=== PATIENT | female | born 1945 | race Caucasian/White ===

== ENCOUNTER → 2016-07-23 | Outpatient (CLI) | payer MEDICARE, OTHER ==
--- NOTE | 2016-07-24 10:32 | MM ---
Reason for exam: screening (asymptomatic). Last mammogram was performed 3 years ago. History: Patient is postmenopausal and is nulliparous. Family history of breast cancer in maternal aunt. Physical Findings: A clinical breast exam by your physician is recommended on an annual basis and results should be correlated with mammographic findings. MG Screening Mammo w CAD Bilateral CC and MLO view(s) were taken. Prior study comparison: July 22, 2013, bilateral digital screening mammo w/CAD. There are scattered fibroglandular densities. There is no discrete abnormality. ASSESSMENT: Negative, BI-RAD 1 RECOMMENDATION: Routine screening mammogram of both breasts in 1 year.
== END | disposition home or self-care (01) ==
LOC: RADMAMWWP 14:11
PROVIDERS: ATTEND Family Medicine
DX: Z12.31 Encounter for screening mammogram for malignant neoplasm of breast (principal)

== ENCOUNTER → 2017-06-24 | Outpatient (CLI) | payer MEDICARE ==
--- NOTE | 2017-06-24 13:32 | MM ---
Reason for exam: clinical finding. Last mammogram was performed 11 months ago. History: Patient is postmenopausal and is nulliparous. Family history of breast cancer in maternal aunt. Physical Findings: Nurse did not find any significant physical abnormalities on exam. MG 3D Diag Mammo W/Cad RT CC and MLO view(s) were taken of the right breast. Prior study comparison: July 23, 2016, bilateral MG screening mammo w CAD. July 22, 2013, bilateral digital screening mammo w/CAD. There are scattered fibroglandular densities. No suspicious abnormality. These results were verbally communicated with the patient and result sheet given to the patient on 06/24/17. ASSESSMENT: Negative, BI-RAD 1 RECOMMENDATION: Return to routine screening mammogram schedule for both breasts. Back on schedule for July 2017. Manage patient on a clinical basis.
== END | disposition home or self-care (01) ==
LOC: RADMAMWWP 10:08
PROVIDERS: ATTEND Family Medicine
DX: N64.9 Disorder of breast, unspecified (principal)
CPT/HCPCS: 77065; G0279

== ENCOUNTER → 2019-04-28 | Outpatient (CLI) | payer MEDICARE ==
--- NOTE | 2019-04-28 14:30 | BD ---
EXAMINATION TYPE: Axial Bone Density DATE OF EXAM: 04/28/2019 COMPARISON: NONE CLINICAL HISTORY: Height: 5 FT 3 IN Weight: 196 FRAX RISK QUESTIONS: Alcohol (3 or more units per day): NO Family History (Parent hip fracture): NO Glucocorticoids (More than 3mos): NO (Ex: prednisone, prednisolone, methylprednisolone, dexamethasone, and hydrocortisone). History of Fracture in Adulthood: NO Secondary Osteoporosis: 1. Type 1 Diabetes: NO 2. Hyperthyroidism: NO 3. Menopause before 45: NO 4. Malnutrition: NO 5. Chronic liver disease: PREV HEPATITIS Rheumatoid Arthritis: NO Current Tobacco Use: NO RISK FACTORS HISTORY OF: Postmenopausal woman: MID 50'S Lost more than 2 inches in height since high school: YES MEDICATIONS: Additional Medications: JANUMET LOSARTIN Additional History: EXAM MEASUREMENTS: Bone mineral densitometry was performed using the linkedü System. Bone mineral density as measured about the Lumbar spine is: ----- L1-L4(G/cm2): 1.188 T Score Values are as follows: ----- L2: -0.9 ----- L3: 0.5 ----- L4: 0.8 ----- L1-L4: 0.1 Bone mineral density has: INCREASED 5.2 % since study of: 2013 Bone mineral density about the R hip (g/cm2): 0.841 Bone mineral density about the L hip (g/cm2): 0.860 T Score values are as follows: -----R Neck: -1.4 -----L Neck: -1.3 -----R Total: -0.8 -----L Total: -0.7 Bone mineral density has: DECREASED -11.6 % since study of: 2013 IMPRESSION: Normal (Values between +1 and -1 indicate normal bone mass). Consider repeating this study in 5 year s or sooner if there is some new clinical indication. NOTE: T-SCORE=SD OF THE YOUNG ADULT MEAN.
--- NOTE | 2019-04-29 13:45 | MM ---
Reason for exam: screening (asymptomatic). Last mammogram was performed 1 year and 10 months ago. History: Patient is postmenopausal and is nulliparous. Family history of breast cancer in maternal aunt. Physical Findings: A clinical breast exam by your physician is recommended on an annual basis and results should be correlated with mammographic findings. MG Screening Mammo w CAD Bilateral CC and MLO view(s) were taken. Prior study comparison: June 24, 2017, right breast MG 3d diag mammo w/cad RT. July 23, 2016, bilateral MG screening mammo w CAD. There are scattered fibroglandular densities. There is no discrete abnormality. No significant changes when compared with prior studies. ASSESSMENT: Negative, BI-RAD 1 RECOMMENDATION: Routine screening mammogram of both breasts in 1 year.
== END | disposition home or self-care (01) ==
LOC: RADMAMWWP 13:36
PROVIDERS: ATTEND Nurse Practitioner Family
DX: Z12.31 Encounter for screening mammogram for malignant neoplasm of breast (principal); Z78.0 Asymptomatic menopausal state
CPT/HCPCS: 77067; 77080

== ENCOUNTER → 2021-08-22 | Outpatient (CLI) | payer MEDICARE ==
[2021-08-22 16:28] LABS: Partial Thromboplastin Time 24.9 sec (22.0-30.0); Prothrombin Time 10.6 sec (9.0-12.0)
[2021-08-22 22:25] LABS: HCT 40.1 % (37.2-46.3); HGB 12.4 g/dL (12.0-15.0); MCHC 30.9 g/dL (32.0-37.0); MCV 87.4 fL (80.0-97.0); Mean Platelet Volume 11.4 fL (9.5-12.2); NRBC Per 100 WBC 0 /100 WBCS (0.0-0.0); Platelet Count 391 X 10*3/uL (140-440); RBC 4.59 X 10*6/uL (4.10-5.20); RDW 15.7 % (11.5-14.5); WBC 7.83 X 10*3/uL (4.50-10.00)
[2021-08-22 22:45] LABS: African American GFR (CKD) 96.9 (60.0-200.0); Albumin 4.3 g/dL (3.8-4.9); Albumin/Globulin Ratio 1.36 (1.60-3.17); Anion Gap 12.7 mmol/L (10.00-18.00); BUN/Creat Ratio 18.36 Ratio (12.00-20.00); Calcium 10.2 mg/dL (8.7-10.3); Carbon Dioxide 26.9 mmol/L (20.0-27.5); Globulin 3.2 g/dL (1.6-3.3); Non-African American GFR(CKD) 83.6 (60.0-200.0); Potassium 4.1 mmol/L (3.5-5.5); Total Bilirubin 0.5 mg/dL (0.30-1.20); Total Protein 7.5 g/dL (6.2-8.2)
[2021-08-22 23:17] LABS: Appearance,Urine Clear (Clear); Bilirubin,Urine Negative (Negative); Blood,Urine Negative (Negative); Color,Urine Yellow (Yellow); Ketones,Urine Trace mg/dL (Negative); Nitrite,Urine Negative (Negative); Specific Gravity,Urine 1.018 (1.001-1.030); Urobilinogen,Urine 0.2 (0.2,1.0)
[2021-08-22 23:25] LABS: Bacteria,Urine None Seen /HPF (None Seen)
== END | disposition home or self-care (01) ==
LOC: LABPAT 14:41
PROVIDERS: ATTEND Orthopaedic Surgery Sports Medicine
DX: Z01.812 Encounter for preprocedural laboratory examination (principal); M17.12 Unilateral primary osteoarthritis, left knee
CPT/HCPCS: 36415; 80053; 81001; 85027; 85610; 85730; 87070; 93005

== ENCOUNTER 2021-09-20 07:26 | Day surgery (SDC) | payer MEDICARE ==
[2021-09-17 16:04] VITALS: BMI 30.2
[~2021-09-20 07:26] MED LIST: ACETAMINOPHEN TAB 500 MG TAB PO PRN; GABAPENTIN 300 MG CAP PO PRN; MELOXICAM 7.5 MG TAB PO PRN; ONDANSETRON 4 MG/2 ML VIAL IVP PRN; TRANEXAMIC ACID IN NACL,ISO-OS 1,000 MG in SALINE 1 100ML.BAG IVPB PRN
[2021-09-20 08:32] LABS: Glucose,Whole Blood 133 mg/dL (70-110)
[2021-09-20] MEDS ORDERED: LACTATED RINGERS 1,000 ML IV ONE (08:32)
[2021-09-20] MEDS ORDERED: fentaNYL (PF) 50 MCG/ML 2 ML AMP IVP ONE (09:25)
[2021-09-20] MEDS ORDERED: MIDAZOLAM 2 MG/2 ML VIAL IVP ONE (09:25)
--- NOTE | 2021-09-20 09:59 | P.ANPRN ---
Procedure Note - Anesthesia - Nerve Block Performed Left Adductor Canal Infusion Time Out Performed: Yes (924) Date of Procedure: 09/20/21 Procedure Start Time: : Procedure Stop Time: : Location of Patient: PreOp Indication: Acute Post-Operative Pain, Requested by Surgeon Specifically requested for management of pain by DrBan: Carlos Alberto Kaminski Sedation Type: Sedate with meaningful contact maintained Preparation: Sterile Prep, Sterile Dressing Position: Supine Catheter Depth at Skin (cm): 7 Catheter: Indwelling Needle Types: Pajunk Needle Gauge: Other (see comment) (16) Ultrasound used to visualize needle placement: Yes Ultrasound used to observe medication spread: Yes Injectate: 0.5% Ropivacaine (see comment for volume) (15cc + 5cc nacl) Blood Aspirated: No Pain Paresthesia on Injection Noted: No Resistance on Injection: Normal Image Stored and Saved: Yes Events: Uneventful and Well Tolerated
--- NOTE | 2021-09-20 10:00 | P.ANPRN ---
Procedure Note - Anesthesia - Nerve Block Performed Left iPack Single Time Out Performed: Yes (924) Date of Procedure: 09/20/21 Procedure Start Time: 09:32 Procedure Stop Time: 09:36 Location of Patient: PreOp Indication: Acute Post-Operative Pain, Requested by Surgeon Specifically requested for management of pain by DrBan: Carlos Alberto Kaminski Sedation Type: Sedate with meaningful contact maintained Preparation: Sterile Prep Position: Supine Catheter: None Needle Types: Pajunk Needle Gauge: 21 Ultrasound used to visualize needle placement: Yes Ultrasound used to observe medication spread: Yes Injectate: 0.5% Ropivacaine (see comment for volume) (15cc +5cc nacl) Blood Aspirated: No Pain Paresthesia on Injection Noted: No Resistance on Injection: Normal Image Stored and Saved: Yes Events: Uneventful and Well Tolerated
[2021-09-20] MEDS ORDERED: ACETAMINOPHEN TAB 325 MG TAB PO PRN (10:21)
[2021-09-20] MEDS ORDERED: NA PHOS,M-B/NA PHOS,DI-BA 133 ML ENEMA RECTAL PRN (10:21)
[2021-09-20] MEDS ORDERED: MAGNESIUM HYDROXIDE 2,400 MG/10 ML CUP PO PRN (10:21)
[2021-09-20] MEDS ORDERED: NALOXONE 0.4 MG/ML 1 ML VIAL IV PRN (10:21)
[2021-09-20] MEDS ORDERED: hydrOXYzine pamoate 25 MG CAP PO PRN (10:21)
[2021-09-20] MEDS ORDERED: diazePAM 5 MG TAB PO PRN (10:21)
[2021-09-20] MEDS ORDERED: TEMAZEPAM 15 MG CAP PO PRN (10:21)
[2021-09-20] MEDS ORDERED: HYDROmorphone 0.5 MG/0.5 ML SYRINGE IVP PRN ×3 (10:21)
[2021-09-20] MEDS ORDERED: bisacodyL 10 MG SUPP RECTAL PRN (10:21)
[2021-09-20] MEDS ORDERED: traMADol 50 MG TAB PO PRN (10:21)
[2021-09-20] MEDS ORDERED: ONDANSETRON 4 MG/2 ML VIAL IVP PRN (10:21)
[2021-09-20] MEDS ORDERED: HYDROcodone/APAP 7.5-325MG 1 EACH TAB PO PRN ×2 (10:25)
[2021-09-20] MEDS ORDERED: ePHEDrine 50 MG/ML 1 ML VIAL ONE (10:31)
[2021-09-20] MEDS ORDERED: MIDAZOLAM 2 MG/2 ML VIAL ONE (10:31)
[2021-09-20] MEDS ORDERED: fentaNYL (PF) 50 MCG/ML 2 ML AMP ONE (10:31)
[2021-09-20] MEDS ORDERED: ROPIVACAINE 5 MG/ML 30 ML VIAL ONE (10:31)
[2021-09-20] MEDS ORDERED: PROPOFOL 10 MG/ML 20 ML VIAL IV ONE (10:31)
[2021-09-20] MEDS ORDERED: SODIUM CHLORIDE 0.9% (PF) 10 ML VIAL ONE (10:31)
[2021-09-20] MEDS ORDERED: ceFAZolin 3,000 MG in SODIUM CHLORIDE 0.9% IRRIGATIO 3,000 ML IRRIGATION ONE (11:04)
[2021-09-20] MEDS ORDERED: ROPIVACAINE 0.2%-NS ON-Q PUMP 2 MG/ML EACH MISCELLANE ONE (12:48)
[2021-09-20 13:19] LABS: Glucose,Whole Blood 90 mg/dL (70-110)
--- NOTE | 2021-09-20 14:00 | XR ---
EXAMINATION TYPE: XR knee limited LT DATE OF EXAM: 09/20/2021 COMPARISON: NONE HISTORY: 76-year-old female evaluation for postoperative abnormality in alignment TECHNIQUE: 2 views FINDINGS: Images show placement of left total knee arthroplasty. Both distal femoral and proximal tibial compon ents of the prosthesis appear well seated without prosthetic fracture. Alignment grossly anatomic. An terior soft tissue swelling with soft tissue air as well as intra-articular air related to recent ope ration. IMPRESSION: Uncomplicated postoperative appearance left total knee arthroplasty.
[2021-09-20] MEDS: LACTATED RINGERS 1,000 ML IV SCH (14:14)
--- NOTE | 2021-09-20 15:54 | OP ---
OPERATIVE REPORT DATE OF PROCEDURE: 09/20/2021. SURGEON: Carlos Alberto Kaminski MD. CLINICAL NURSING INSTRUCTOR: Frank GUZMÁN. PREOPERATIVE DIAGNOSIS: Left knee osteoarthrosis. POSTOP DIAGNOSIS: Left knee osteoarthrosis. OPERATION: Left total knee arthroplasty. ANESTHESIA: Spinal sedation. ESTIMATED BLOOD LOSS: 100 mL. TOURNIQUET: Tourniquet time was 55 minutes at 250 mmHg. COMPLICATIONS: None apparent. DRAINS: None. DISPOSITION: Postanesthesia care unit. INDICATIONS: Rosa is a very pleasant 76-year-old female with longstanding history of left knee pain. History and physical examination are consistent with advanced left knee osteoarthrosis. She has been through significant nonoperative management up to this point. Further treatment options were discussed and she has decided to go forward with left total knee arthroplasty. The risks of procedure were discussed with her in detail. These risks included, but were not limited to risk of infection, nerve damage, bleeding, pain, and a small risk of deep vein thrombosis which could lead to fatal pulmonary embolism. There is also risk of loosening of the implant which could require revision operation. The patient understands these risks. All of her questions were answered to her satisfaction. Appropriate informed consent was obtained. DESCRIPTION OF THE PROCEDURE: The patient was identified in the preoperative holding area. Surgical site was marked by both the patient and myself. She was given 2 grams of Ancef IV prophylactic purposes. She was then transferred to the operative suite. She was placed supine on the operative table. A spinal anesthetic was then administered and dosed per the anesthesia without apparent complication. Examination under anesthesia number form. The patient was 5-7 degrees shy of full extension. She had 90 degrees of flexion. The medial collateral ligament, lateral collateral ligament and posterior cruciate ligaments were stable. Tourniquet was then placed high on the left upper thigh well-padded in preparation for surgery. The patient's left lower extremity was then prepped and draped in usual sterile fashion. Standard surgical pause undertaken to ensure that we were operating the correct site and that appropriate preoperative antibiotics were given. All staff in room in agreement and we proceeded. Next, the outlines of the patella were marked were then marked with a surgical pen. A planned 12 cm vertical incision centered over the patella was marked with a surgical pen. Leg was then exsanguinated with an Esmarch dressing. The knee was then flexed and tourniquet inflated to 250 mmHg. The total tourniquet time for the procedure was 55 minutes minutes. Incision was then made with a 10 blade scalpel. Dissection carried down sharply overlying fascia. Great care was taken to minimize the skin flaps. The knee was then exposed using a standard medial parapatellar approach. A small cuff of quadriceps tendon was left for suturing. She was in a bit of valgus preoperatively. A very minimal medial release was made. It was just enough to place the medial retractors. The medial meniscus was then excised as well. The lateral meniscus was also released anteriorly. The leg was then externally rotated. The patella was everted. The knee was flexed. The retractors then placed to protect the collateral ligaments. I then proceeded to remove the infrapatellar fat pad. It was excised sharply tangentially with fibers of the patellar tendon. I then proceeded to remove the peripheral osteophytes. This was done with a rongeur. I then proceeded with the distal femoral resection. She did have a flexion contracture. A planned 11 mm resection was then done. Femoral canal was then entered the femur approximately 10 mm anterior to the origin of the posterior cruciate ligament. The camron was then advanced on the side of the femur and placed intramedullary. Based on the preoperative radiographs, the angle between the anatomic and mechanical axis of the femur was approximately 4-5 degrees with valgus angle. The distal femoral cutting guide was then set at 4 degrees for the left knee. The distal femoral cutting guide was advanced over the intramedullary camron. This was seated firmly against the femur. Then as mentioned planned to take 11 mm off the distal femur. The cutting block was then secured onto the femur with pins. The jig was then removed. Distal femoral cut was made through the slot of the block. The pins were then removed. The distal femoral cutting block was removed. The accuracy of the distal femoral cuts was checked with 2 flat bars. I then proceeded to femoral sizing. Posterior referencing sizing guide was held firmly against the resected distal surface of the femur. Posterior condyles were resting on the posterior plane of the guide. The sizing stylus was then placed on the anterior femur. The size was measured as a size 8. I then assessed for femoral rotation. Plan was for 3 degrees of external rotation. Three degrees external rotation was placed onto the jig. These holes were then marked. I then confirmed the rotation by 3 separate methods. This was done using epicondylar axis as well as Whitesides line and posterior referencing. It was deemed that the external rotation was proper. I then went forward placing the femoral cutting block. This was placed over the previously placed pin holes. The Allan wing was then placed onto the anterior slots to ensure that we would not notch the anterior femur with the anterior femoral cut. I then proceeded with the anterior femoral cut. This was flush with the anterior cortex of the femur. The posterior cuts were then made followed by the anterior chamfer cut, then the posterior chamfer cut. The cutting block was then removed. Throughout the resection, the collateral ligaments were protected with retractors. I then placed a trial size 8 femur. It was slightly wide with a narrow fit very nicely and it fit flush with the distal end of the femur. The drill holes were then made. I then proceeded with the tibial cut. I planned for cruciate-retaining knee. The guide was placed and set for varus valgus and for slope. The height was set for approximate 2 mm resection from the lateral tibial plateau which was the lower side. I was happy with the alignment and the amount of resection. The cutting block was then pinned to the proximal tibia. The alignment camron was removed. The proximal tibia was resected with a reciprocating saw. Again, this was done with retractors protecting the collateral ligaments as well as the posterior cruciate ligament. I then proceeded to evaluate the flexion extension gaps. A 10 mm block was then placed. The flexion and extension gaps were equal. I then proceed with resection of posterior osteophytes. She had very extensive posterior osteophytes. This was done using a curved osteotome. This resected the posterior osteophytes and posterior capsule stripping was done off the posterior aspect of the femur at this time. The osteophytes were then removed. I then proceeded with the resection of the patella. The thickness of patella was measured using the caliper. The thickness was 22 mm. The thickness of the anticipated patellar dome was taken into account. The resection was then performed and confirmed to be equal in 4 quadrants using a caliper. Approximately 14 mm of bone remained after resection. A 32 x 8.5 standard patellar trial was then placed. The holes drilled. The trial was then placed. I then proceed with sizing tibial plate. A size D tibial plate fit very nicely. I then placed the trial femur in the tibial tray and patellar button. A 10 mm trial tibial insert was also placed. The components fit very nicely. She had full extension and flexion. The extension and flexion gaps were equal and stable to both varus and valgus stress. The patella tracked appropriately. The tibial tray rotation was then marked with a Bovie. This was externally rotated properly. I then proceeded with tibial preparation. First, drilled the femoral holes, removed femoral component. The tibial tray was then set for proper external rotation as well as mediolateral placement onto the tibia. Then pinned into place. I then proceeded punching the keel. I then decided to proceed with cementing of all our components. The knee was thoroughly irrigated with sterile saline solution via pulse lavage. The lateral geniculate artery was identified and cauterized. All blood was removed from the bone of the tibia, femur and patella with pulse lavage. I then proceed with cementing. Two packs of antibiotic bone cement was prepared on the back table by the computer repair technician. I then proceeded with cementing the tibia first. Cement was impacted in the keel as well as deeply seated in the bone. A second coat of cement was then placed. The tibia was then impacted into place. Excess cement was removed with [place]'s and jokers. I then proceeded with cementing of the femoral component. The femoral component was also cemented using standard technique. Excess cement was removed. A 10 mm trial insert was then placed into the knee. It was brought into full extension with a constant axial load, placed until the cement had hardened. The patellar component was then cemented. This held firmly with a compressive device until the cement had dried. When the cement had dried, the knee was taken out of extension. All excess cement was removed from around the prosthesis. I then trialed the knee with a 10 mm insert. Flexion extension gaps were appropriate. The knee was stable. It came in full extension. I decided to go forward with a 10 mm medial congruent cross-linked cruciate-retaining tibial insert. Polyethylene was then placed on the tibial tray and locked in place. The knee was then reduced. The knee was again further irrigated with sterile saline solution with antibiotic added. The tourniquet was then deflated. Total tourniquet time for the procedure was 55 minutes minutes at 250 mmHg. Final components were Larry Persona size 8 narrow cruciate-retaining femoral component, size D tibial tray, a 10 mm medial congruent cruciate-retaining polyethylene insert, and a 32 x 8.5 mm patella. I then proceed with closure. Again, the knee was thoroughly irrigated. The quadriceps tendon and the medial retinaculum were reapproximated with #2 Ethibond suture. The extensor mechanism was then closed with a running #2 Quill suture. Subcutaneous tissues were closed with 2-0 Vicryl interrupted suture. The skin was closed with a running 3-0 Quill suture. Dermabond was applied to the incision. Sterile compressive dressings were applied. All sponge and needle counts were deemed correct prior to closure. The patient tolerated procedure without apparent complication. She was transferred to recovery room in stable condition. MMODL / IJN: [id number] /
[2021-09-20 16:17] LABS: Glucose,Whole Blood 104 mg/dL (70-110)
--- NOTE | 2021-09-20 16:23 | P.CONS ---
History of Present Illness - Reason for Consult Consult date: 09/20/21 Medical management Requesting physician: Carlos Alberto Kaminski - Chief Complaint Left knee surgery - History of Present Illness This is a pleasant 76-year-old patient of Dr. Farley. Chronic stable medical conditions include diabetes mellitus type 2, hypertension, osteoarthritis of joints. Patient is undergone left total knee arthroplasty. Postprocedure no nausea vomiting. No chest pain or shortness of breath. Reclining in bed. Review of systems: GEN.: None EYES: None HEENT: None NECK: None RESPIRATORY: None CARDIOVASCULAR: None GASTROINTESTINAL: None GENITOURINARY: Urine stress incontinence MUSCULOSKELETAL: Pain in different joints including left shoulder LYMPHATICS: None HEMATOLOGICAL: None PSYCHIATRY: None NEUROLOGICAL: None Past medical history to include: Diabetes mellitus, hypertension, osteoarthritis, Social history: No history of smoking or alcohol. Lives with sister. Physical examination: VITAL SIGNS: 97.2, 56, 20, 142/61, 100% room air GENERAL: BMI 29.2, reclining in bed awake comfortable. EYES: Pupils equal. Conjunctiva normal. HEENT: External appearance of nose and ears normal, oral cavity grossly normal. NECK: JVD not raised; masses not palpable. HEART: First and second heart sounds are normal; no edema. LUNGS: Respiratory rate normal; clear to auscultation. ABDOMEN: Soft, nontender, liver spleen not palpable, no masses palpable. PSYCH: Alert and oriented x3; mood and affect normal. MUSCULOSKELETAL:No Clubbing/cyanosis;muscles-grossly intact. Evidence of OA. Resting over the left knee. NEUROLOGICAL: Cranial nerves grossly intact; no facial asymmetry, power and sensation grossly intact. LYMPHATICS: No lymph nodes palpable in the axilla and neck INVESTIGATIONS, reviewed in the clinical context: Lab work from 08/22/2021: White count 7.8 hemoglobin 12.4 platelets 391 sodium 143 potassium 4.1 creatinine 0.7 EKG tracing personally reviewed by me-sinus rhythm. Assessment and plan: -Left total knee arthroplasty. Aspirin 81 mg twice a day for DVT prophylaxis. IV Ancef for infection prophylaxis. [place] when necessary for pain control. -Diabetes mellitus type 2 on oral hypoglycemic Resume gentleman 50/500. Follow Accu-Cheks. Essential hypertension Cozaar 100 mg a day. Hydrochlorothiazide 25 mg daily. -Chronic urinary stress incontinence -Primary osteoarthritis multiple joints bilateral Tylenol when necessary -Occasional GERD Pepcid when necessary Aspirin for DVT prophylaxis. IV Ancef for infection prophylaxis. Home medications to be resumed. Follow Accu-Cheks. Activity as tolerated. Care was discussed with the patient. Questions answered. Thank you Dr. Kaminski Past Medical History Past Medical History: Diabetes Mellitus, Eye Disorder, Hypertension, Liver Disease, Osteoarthritis (OA) Additional Past Medical History / Comment(s): Mild cataracts. Hepatitis at age 13, A & C. Occ edema w/ standing alot. History of Any Multi-Drug Resistant Organisms: None Reported Past Surgical History: Cholecystectomy Additional Past Surgical History / Comment(s): D&C Past Anesthesia/Blood Transfusion Reactions: No Reported Reaction Past Psychological History: No Psychological Hx Reported Smoking Status: Never smoker Past Alcohol Use History: None Reported Past Drug Use History: None Reported - Past Family History Mother Family Medical History: No Reported History Medications and Allergies Home Medications Medication Instructions Recorded Confirmed Type Acetaminophen [Tylenol Extra 1,000 mg PO DIRECTED PRN 09/17/21 09/20/21 History Strength] Losartan Potassium [Cozaar] 100 mg PO DAILY 09/17/21 09/20/21 History hydroCHLOROthiazide [Hydrodiuril] 25 mg PO DAILY 09/17/21 09/20/21 History sitaGLIPtin PHOS/metFORMIN HCL 1 each PO DAILY 09/17/21 09/20/21 History [Janumet 50-500 mg Tablet] Allergies Allergy/AdvReac Type Severity Reaction Status Date / Time codeine Allergy Rash/Hives Verified 09/20/21 08:04 prazosin [From Minipress] AdvReac Nausea Verified 09/20/21 08:04 Physical Exam Vitals: Vital Signs Temp Pulse Resp BP Pulse Ox 09/20/21 15:21 97.2 F L 56 L 20 142/61 100 09/20/21 13:48 57 L 14 142/62 98 09/20/21 13:33 57 L 16 143/67 100 09/20/21 13:18 57 L 16 134/61 99 09/20/21 13:03 97.0 F L 56 L 16 138/61 98 09/20/21 12:48 56 L 16 142/64 99 09/20/21 12:33 97.7 F 65 16 126/57 96 09/20/21 09:42 52 L 15 146/65 98 09/20/21 08:19 98.1 F 67 18 155/70 97 Intake and Output 09/20/21 09/20/21 09/20/21 06:59 14:59 22:59 Intake Total 951 Output Total 100 Balance 851 Intake: IV 951 Output: Estimated Blood Loss 100 Other: Weight 79 kg Results Labs: Abnormal Lab Results - Last 24 Hours (Table) 09/20/21 Range/Units 08:28 POC Glucose (mg/dL) 133 H (70-110) mg/dL
[2021-09-20] MEDS: INSULIN ASPART (NovoLOG) 100 UNIT/ML VIAL SQ SCH (17:01)
[2021-09-20 20:06] LABS: Glucose,Whole Blood 176 mg/dL (70-110)
[2021-09-20] MEDS ORDERED: SENNOSIDES-DOCUSATE SODIUM 1 EACH TAB PO SCH (21:00)
[2021-09-20] MEDS: ASPIRIN 81 MG PO SCH (21:50)
[2021-09-21] MEDS: LACTATED RINGERS 1,000 ML IV SCH (01:32)
[2021-09-21 07:27] LABS: Glucose,Whole Blood 127 mg/dL (70-110)
[2021-09-21] MEDS: INSULIN ASPART (NovoLOG) 100 UNIT/ML VIAL SQ SCH ×2 (07:50→11:32)
[2021-09-21] MEDS: metFORMIN 500 MG TAB PO SCH ×2 (07:53→07:54)
[2021-09-21] MEDS: ASPIRIN 81 MG PO SCH (07:53)
[2021-09-21 08:24] VITALS: BP 156/76; PULSE 70; RESP 18
--- NOTE | 2021-09-21 08:32 | P.PN ---
Progress Note - Text Progress Note Date: 09/21/21 (6457) Anesthesiology Postop day 1 status post total knee arthroplasty with adductor canal catheter. Patient doing well. VAS 4 out of 10. Gross strength intact in lower extremity. Afebrile. Denies alterations in sensorium. Catheter site intact. Heart regular rate Lungs nonlabored Abdomen nondistended Assessment: Postop day 1 status post total knee arthroplasty with adductor canal catheter Plan: All questions answered. Maintain catheter 2 more days with patient removal at home. Instructions were given at discharge.
[2021-09-21] MEDS ORDERED: LOSARTAN 50 MG TAB PO SCH (09:00)
[2021-09-21] MEDS ORDERED: LINAGLIPTIN 5 MG TABLET PO SCH (09:00)
[2021-09-21 09:02] LABS: Basophils # (A) 0.03 X 10*3/uL (0.00-0.10); Basophils % (A) 0.3 %; Eosinophils # (A) 0.02 X 10*3/uL (0.04-0.35); Eosinophils % (A) 0.2 %; HCT 34.5 % (37.2-46.3); HGB 10.9 g/dL (12.0-15.0); Immature Grans, Automated 0.3 %; Lymphocytes # (A) 1.04 X 10*3/uL (0.90-5.00); Lymphocytes % (A) 11.3 %; MCH 27.8 pg (27.0-32.0); MCHC 31.6 g/dL (32.0-37.0); Mean Platelet Volume 11.2 fL (9.5-12.2); Monocytes # (A) 0.94 X 10*3/uL (0.20-1.00); Monocytes % (A) 10.2 %; NRBC Per 100 WBC 0 /100 WBCS (0.0-0.0); Neutrophils # (A) 7.18 X 10*3/uL (1.80-7.70); Neutrophils % (A) 77.7 %; Platelet Count 304 X 10*3/uL (140-440); RBC 3.92 X 10*6/uL (4.10-5.20); RDW 14.7 % (11.5-14.5); WBC 9.24 X 10*3/uL (4.50-10.00)
--- NOTE | 2021-09-21 09:35 | P.DS ---
Providers Expected date of discharge: 09/21/21 Attending physician: Carlos Alberto Kaminski Consults: 09/20/21 15:07 Consult Physician Routine Consulting Provider: Jered Mcdonald Consult Reason/Comments: medical Do you want consulting provider notified?: Yes Primary care physician: Antwan Farley - Discharge Diagnosis(es) (1) Total knee replacement status Patient was admitted to the OR on 09/20/21 to undergo a left total knee arthroplasty. She had failed conservative measures as an outpatient and desired to proceed with elective surgery after given informed consent. She underwent the above procedure which she tolerated well without complication. Postoperative hospital course has remained without complication. On day of discharge she is afebrile, vital signs stable, labs within acceptable ranges, tolerating by mouth meds and diet, voiding without difficulty, positive flatus, denies abdominal pain or calf pain, pain is controlled on oral pain medication and has no new complaints. Wound is benign, neurovascular status is intact, calf is soft and nontender, abdomen soft and nontender. Review of systems is negative for numbness, tingling, fever, chills, chest pain, shortness of breath, nausea, vomiting, dizziness, headaches, slurred speech or other. Current Visit: Yes Status: Acute Priority: Medium Procedures: Left TKA Patient Condition at Discharge: Good Plan - Discharge Summary Discharge Rx Participant: Yes New Discharge Prescriptions: New Docusate [Colace] 100 mg PO BID #60 capsule Aspirin [Adult Low Dose Aspirin EC] 81 mg PO BID #60 tab traMADol HCL 50 mg PO Q4HR PRN #42 tablet PRN Reason: Pain No Action hydroCHLOROthiazide [Hydrodiuril] 25 mg PO DAILY Acetaminophen [Tylenol Extra Strength] 1,000 mg PO DIRECTED PRN PRN Reason: Pain sitaGLIPtin PHOS/metFORMIN HCL [Janumet 50-500 mg Tablet] 1 each PO DAILY Losartan Potassium [Cozaar] 100 mg PO DAILY Discharge Medication List Acetaminophen [Tylenol Extra Strength] 1,000 mg PO DIRECTED PRN 09/17/21 [History] Losartan Potassium [Cozaar] 100 mg PO DAILY 09/17/21 [History] hydroCHLOROthiazide [Hydrodiuril] 25 mg PO DAILY 09/17/21 [History] sitaGLIPtin PHOS/metFORMIN HCL [Janumet 50-500 mg Tablet] 1 each PO DAILY 09/17/21 [History] Aspirin [Adult Low Dose Aspirin EC] 81 mg PO BID #60 tab 09/21/21 [Rx] Docusate [Colace] 100 mg PO BID #60 capsule 09/21/21 [Rx] traMADol HCL 50 mg PO Q4HR PRN #42 tablet 09/21/21 [Rx] Follow up Appointment(s)/Referral(s): Carlos Alberto Kaminski MD [STAFF PHYSICIAN] - 10 Days Discharge Disposition: HOME SELF-CARE
[2021-09-21 09:44] VITALS: TEMP 98.4
[2021-09-21 11:22] LABS: Glucose,Whole Blood 187 mg/dL (70-110)
[2021-09-21] MEDS ORDERED: MULTIVITAMINS, THERA 1 EACH TAB PO SCH (12:00)
--- NOTE | 2021-09-21 16:50 | P.PN ---
Progress Note - Text Progress Note Date: 09/21/21 - Chief Complaint Left knee surgery Hospital course This is a pleasant 76-year-old patient of Dr. Farley. Chronic stable medical conditions include diabetes mellitus type 2, hypertension, osteoarthritis of joints. Patient is undergone left total knee arthroplasty. Postprocedure no nausea vomiting. No chest pain or shortness of breath. Reclining in bed. September 21: Did ambulate. Pain control. Adequate breakfast. No nausea vomiting. Questions answered. Ferrous sulfate added. Current medications reviewed Past medical history to include: Diabetes mellitus, hypertension, osteoarthritis, Social history: No history of smoking or alcohol. Lives with sister. Physical examination: VITAL SIGNS: 98.4, 70, 18, 156.76, 94% room air GENERAL: Sitting up in chair, comfortable EYES: Pupils equal. Conjunctiva normal. HEENT: External appearance of nose and ears normal, oral cavity grossly normal. NECK: JVD not raised; masses not palpable. HEART: First and second heart sounds are normal; no edema. LUNGS: Respiratory rate normal; clear to auscultation. ABDOMEN: Soft, nontender, liver spleen not palpable, no masses palpable. PSYCH: Alert and oriented x3; mood and affect normal. MUSCULOSKELETAL:No Clubbing/cyanosis;muscles-grossly intact. Evidence of OA. Resting over the left knee. INVESTIGATIONS, reviewed in the clinical context: September 21: White count 9.2 hemoglobin 10.9 platelets 304 Lab work from 08/22/2021: White count 7.8 hemoglobin 12.4 platelets 391 sodium 143 potassium 4.1 creatinine 0.7 EKG tracing personally reviewed by me-sinus rhythm. Assessment and plan: -Left total knee arthroplasty. Aspirin 81 mg twice a day for DVT prophylaxis. IV Ancef for infection prophylaxis. [place] when necessary for pain control. -Diabetes mellitus type 2 on oral hypoglycemic Resume gentleman 50/500. Follow Accu-Cheks. Essential hypertension Cozaar 100 mg a day. Hydrochlorothiazide 25 mg daily. -Chronic urinary stress incontinence -Primary osteoarthritis multiple joints bilateral Tylenol when necessary -Occasional GERD Pepcid when necessary -Acute postprocedure blood loss anemia expected from surgery Ferrous sulfate 325 mg twice a day -Chronic idiopathic insomnia Melatonin when needed Continue current medications. Ferrous sulfate added. Discussed with patient. Follow with Dr. Farley. Thank you Dr. Kaminski
== END 2021-09-21 12:30 | disposition home health service (06) ==
LOC: OR 07:26 → 4SSUR 13:45 → OR 09-21 12:30
PROVIDERS: ATTEND Orthopaedic Surgery Sports Medicine
DX: M17.12 Unilateral primary osteoarthritis, left knee (principal); I10 Essential (primary) hypertension; E11.9 Type 2 diabetes mellitus without complications; Z97.3 Presence of spectacles and contact lenses; F51.01 Primary insomnia; G47.9 Sleep disorder, unspecified; K21.9 Gastro-esophageal reflux disease without esophagitis; Z86.19 Personal history of other infectious and parasitic diseases; Z82.49 Family history of ischemic heart disease and other diseases of the circulatory system; Z79.84 Long term (current) use of oral hypoglycemic drugs; Z79.899 Other long term (current) drug therapy; Z88.5 Allergy status to narcotic agent; Z88.8 Allergy status to other drugs, medicaments and biological substances
CPT/HCPCS: 97162; 64999; 64448; 76942; 85025; 88300; 73560; 27447; C1776; C1713; J2250; J0690 ×3; J2405; J3010; J2795 ×2; J2704; J1170

== ENCOUNTER → 2022-09-13 | Outpatient (CLI) | payer MEDICARE ==
[2022-09-13 11:44] LABS: Partial Thromboplastin Time 24.2 sec (22.0-30.0); Prothrombin Time 10.1 sec (9.0-12.0)
[2022-09-13 15:48] LABS: ALT 14 U/L (8-44); AST 24 U/L (13-35); Albumin 4.1 d/dL (3.8-4.9); Albumin/Globulin Ratio 1.52 Ratio (1.60-3.17); Alkaline Phosphatase 58 U/L (41-126); Blood Urea Nitrogen 16.1 mg/dL (9.0-27.0); Calcium 10.2 mg/dL (8.7-10.3); Chloride 104 mmol/L (96-109); Globulin 2.7 d/dL (1.6-3.3); Glucose 102 mg/dL (70-110); Potassium 4.5 mmol/L (3.5-5.5); Sodium 143 mmol/L (135-145); Total Bilirubin 0.5 mg/dL (0.3-1.2); Total Protein 6.8 d/dL (6.2-8.2)
[2022-09-13 16:09] LABS: HCT 41.3 % (37.2-46.3); HGB 13.1 d/dL (12.0-15.0); MCH 28.2 pg (27.0-32.0); MCHC 31.7 d/dL (32.0-37.0); Mean Platelet Volume 11.8 FL (9.5-12.2); NRBC Per 100 WBC 0 X 10*3/uL (0.00-0.01); Platelet Count 348 X 10*3/uL (140-440); RBC 4.64 X 10*6/uL (4.10-5.20); RDW 14.4 % (11.5-14.5); WBC 10.06 X 10*3/uL (4.50-10.00)
[2022-09-13 16:29] LABS: Appearance,Urine Clear (Clear); Bacteria,Urine None Seen (None Seen); Bilirubin,Urine Negative (Negative); Blood,Urine Negative (Negative); Color,Urine Yellow (Yellow); Ketones,Urine Negative (Negative); Nitrite,Urine Negative (Negative); PH, Urine 6.5; Specific Gravity,Urine 1.014 (1.001-1.030); Urobilinogen,Urine 0.2
== END | disposition home or self-care (01) ==
LOC: LABPAT 09:04
PROVIDERS: ATTEND Orthopaedic Surgery Sports Medicine
DX: Z01.812 Encounter for preprocedural laboratory examination (principal); M17.11 Unilateral primary osteoarthritis, right knee
CPT/HCPCS: 80053; 81001; 85027; 85610; 85730; 87070; 93005

== ENCOUNTER 2022-10-10 07:00 | Day surgery (SDC) | payer MEDICARE ==
[~2022-10-10 07:00] MED LIST changes: +TRANEXAMIC 1,000 MG/100ML-NACL 1,000 MG in SALINE 1 100ML.BAG IVPB PRN; -TRANEXAMIC ACID IN NACL,ISO-OS 1,000 MG in SALINE 1 100ML.BAG IVPB PRN
[2022-10-10] MEDS ORDERED: LACTATED RINGERS 1,000 ML IV ONE (07:45)
[2022-10-10] MEDS ORDERED: droPERidol 5 MG/2 ML VIAL IVP ONE (07:49)
[2022-10-10] MEDS ORDERED: fentaNYL (PF) 50 MCG/ML 2 ML AMP IV PRN (07:49)
[2022-10-10] MEDS ORDERED: LIDOCAINE 1% (10MG/ML) FOR IV START INTRADERMA PRN (07:49)
[2022-10-10] MEDS ORDERED: ONDANSETRON 4 MG/2 ML VIAL IVP ONE (08:00)
[2022-10-10] MEDS ORDERED: DEXAMETHASONE SOD PHOSPHATE 4 MG/ML 1 ML VIAL IV ONE (08:00)
[2022-10-10 08:19] LABS: Glucose,Whole Blood 143 mg/dL (70-110)
[2022-10-10] MEDS ORDERED: MIDAZOLAM 2 MG/2 ML VIAL IVP ONE (08:47)
[2022-10-10] MEDS ORDERED: fentaNYL (PF) 50 MCG/ML 2 ML AMP IVP ONE (08:47)
[2022-10-10] MEDS ORDERED: MAGNESIUM HYDROXIDE 2,400 MG/30 ML CUP PO PRN (09:26)
[2022-10-10] MEDS ORDERED: bisacodyL 10 MG SUPP RECTAL PRN (09:26)
[2022-10-10] MEDS ORDERED: HYDROcodone/APAP 5-325MG 1 EACH TAB PO PRN (09:26)
[2022-10-10] MEDS ORDERED: HYDROmorphone 0.5 MG/0.5 ML SYRINGE IVP PRN ×3 (09:26)
[2022-10-10] MEDS ORDERED: NALOXONE 0.4 MG/ML 1 ML VIAL IV PRN (09:26)
[2022-10-10] MEDS ORDERED: NA PHOS,M-B/NA PHOS,DI-BA 133 ML ENEMA RECTAL PRN (09:26)
[2022-10-10] MEDS ORDERED: traMADol 50 MG TAB PO PRN (09:26)
[2022-10-10] MEDS ORDERED: ACETAMINOPHEN TAB 325 MG TAB PO PRN (09:26)
[2022-10-10] MEDS ORDERED: ONDANSETRON 4 MG/2 ML VIAL IVP PRN (09:26)
[2022-10-10] MEDS ORDERED: TRANEXAMIC 1,000 MG/100ML-NACL PREMIX BAG ONE (09:38)
[2022-10-10] MEDS ORDERED: PROPOFOL 10 MG/ML 20 ML VIAL IV ONE (09:38)
[2022-10-10] MEDS ORDERED: MIDAZOLAM 2 MG/2 ML VIAL ONE (09:38)
[2022-10-10] MEDS ORDERED: fentaNYL (PF) 50 MCG/ML 2 ML AMP ONE (09:38)
[2022-10-10] MEDS ORDERED: ROPIVACAINE 5 MG/ML 30 ML VIAL ONE (09:38)
[2022-10-10] MEDS ORDERED: SODIUM CHLORIDE 0.9% (PF) 10 ML VIAL ONE (09:38)
--- NOTE | 2022-10-10 10:01 | P.ANPRN ---
Procedure Note - Anesthesia - Nerve Block Performed Right Adductor Canal Infusion Time Out Performed: Yes (0846) Date of Procedure: 10/10/22 Procedure Start Time: 08:47 Procedure Stop Time: 08:52 Location of Patient: PreOp Indication: Acute Post-Operative Pain, Requested by Surgeon Specifically requested for management of pain by DrBan: Carlos Alberto Kaminski Sedation Type: Sedate with meaningful contact maintained Preparation: Sterile Prep Position: Supine Catheter: None Needle Types: Pajunk Needle Gauge: 21 Ultrasound used to visualize needle placement: Yes Ultrasound used to observe medication spread: Yes Injectate: 0.5% Ropivacaine (see comment for volume) (15CC +5CC NACL PF) Blood Aspirated: No Pain Paresthesia on Injection Noted: No Resistance on Injection: Normal Image Stored and Saved: Yes Events: Uneventful and Well Tolerated
--- NOTE | 2022-10-10 10:03 | P.ANPRN ---
Procedure Note - Anesthesia - Nerve Block Performed Right iPack Single Time Out Performed: Yes (0846) Date of Procedure: 10/10/22 Procedure Start Time: 08:53 Procedure Stop Time: 08:57 Location of Patient: PreOp Indication: Acute Post-Operative Pain, Requested by Surgeon Specifically requested for management of pain by DrBan: Carlos Alberto Kaminski Sedation Type: Sedate with meaningful contact maintained Preparation: Sterile Prep Position: Supine Catheter: None Needle Types: Pajunk Needle Gauge: 21 Ultrasound used to visualize needle placement: Yes Ultrasound used to observe medication spread: Yes Injectate: 0.5% Ropivacaine (see comment for volume) (15cc + 5cc nacl pf) Blood Aspirated: No Pain Paresthesia on Injection Noted: No Resistance on Injection: Normal Image Stored and Saved: Yes Events: Uneventful and Well Tolerated
--- NOTE | 2022-10-10 12:41 | OP ---
OPERATIVE REPORT DATE OF SERVICE : 10/10/2022 PASSENGER SOLICITOR: Frank Harris PA-C PREOPERATIVE DIAGNOSIS: Right knee osteoarthrosis. POSTOPERATIVE DIAGNOSIS: Right knee osteoarthrosis. PROCEDURES PERFORMED: Right total knee arthroplasty. ANESTHESIA: Spinal sedation. ESTIMATED BLOOD LOSS: 100 mL. TOURNIQUET TIME: 59 minutes at 250 mmHg. COMPLICATIONS: None apparent. DRAINS: None. DISPOSITION: Postanesthesia care unit. INDICATIONS FOR PROCEDURE: Rosa is a very pleasant 77-year-old female with longstanding history of right knee pain. History and physical examination are consistent with advanced right knee osteoarthrosis. She has been through significant operative management at this point. Further treatment options were discussed. She decided to go forward with the right total knee arthroplasty. The risks of procedure were all discussed with her in detail. These risks include but are not limited to risk of infection, nerve damage, bleeding, pain, and a small risk of deep vein thrombosis which could lead to fatal pulmonary embolism. There is also a small risk of loosening of the implant which could require revision operation. The patient understands these risks. All of her questions were answered to her satisfaction. Appropriate informed consent was obtained. DESCRIPTION OF PROCEDURE: The patient was identified in the preoperative holding area. Surgical site was marked by both the patient and myself. She was given 2 g of Ancef IV for prophylactic purposes. She was then transported to the operative suite. She was placed supine on the operating room table. A spinal anesthetic was then administered and dosed per the Anesthesia Department without apparent complication. Examination under anesthesia was then performed. She was 5 to 7 degrees shy of full extension. She had 95 degrees of flexion. The medial collateral ligament, lateral collateral ligament, and posterior cruciate ligaments were stable. Tourniquet was then placed high on the right upper thigh and well-padded in preparation for surgery. The patient's right lower extremity was then prepped and draped in usual sterile fashion. Standard surgical pause was undertaken to ensure that we were operating the correct site and that appropriate preoperative antibiotics had been given. All staff in the room were in agreement, and we proceeded. The outlines of the patella were marked with a surgical pen. A planned 12 cm vertical incision centered over the patella was marked with a surgical pen. The leg was then exsanguinated with an Esmarch dressing. The knee was then flexed, and the tourniquet was inflated to 250 mmHg. The total tourniquet time for the procedure was 59 minutes. Incision was then made with a 10-blade scalpel. Dissection was carried down sharply overlying the fascia. Great care was taken to minimize the skin flaps. The knee was then exposed using a standard medial parapatellar approach. A small cuff of quadriceps tendon was then left for suturing. She was in a bit of valgus preoperatively. The medial tissues were released only enough to place the retractor. The medial meniscus was then excised as well. Lateral meniscus was also released anteriorly. The leg was then externally rotated. The patella was everted. The knee was flexed. Retractors were then placed to protect the collateral ligaments. I then proceeded to remove the infrapatellar fat pad. This was excised sharply tangentially with fibers of the patellar tendon. I then proceeded to remove the peripheral osteophytes. This was done with a rongeur. I then proceeded with the distal femoral resection. She did have flexion contracture. I planned 11 mm resection done. The femoral canal was then entered in midline of the femur, approximately 10 mm anterior to the origin of the posterior cruciate ligament. The camron was then advanced on the center of the femur and placed intramedullary. Based on the preoperative radiographs, the angle between the anatomic and mechanical axis of the femur was approximately 4 to 5 degrees. The valgus angle of the distal femoral cutting guide was then set at 4 degrees for the right knee. The distal femoral cutting guide was then advanced over the intramedullary camron. This was seated firmly against the femur. Then, as mentioned, planned to take 11 mm off the distal femur. The cutting block was then secured onto the femur with pins. Jig was then removed. Distal femoral cut was made through the slot of the block. The pins were then removed, and the distal femoral cutting block was removed. The accuracy of the distal femoral cuts was checked with 2 flat bars. I then proceeded with femoral sizing. Posterior referencing sizing guide was held firmly against the resected distal surface of the femur. The posterior condyles were resting on the posterior plane of the guide. The sizing guide was then placed on the anterior femur. The size is measured a size 8. I then assessed for femoral rotation. Planned for 3 degrees of external rotation. Three degrees of external rotation was placed onto the jig. These holes were then marked. I then confirmed the rotation by 3 separate methods. This was done using epicondylar axis as well as Whitesides line and posterior referencing. It was deemed that the external rotation was proper. Then, I therefore placed the femoral cutting block. This was placed over the previously placed pin holes. The Allan wing was then placed on the anterior slots to ensure that we would not notch the anterior femur at the anterior femoral cut. I then proceeded with the anterior femoral cut. This was flushed with the anterior cortex of the femur. The posterior cuts were then made, followed by the anterior chamfer cut, and the posterior chamfer cut. The cutting block was then removed. Throughout the resection, the collateral ligaments were protected with retractors. I then placed a trial size 8 femur. It was slightly wide but the narrow fit very nicely, and it fit flush with the distal end of the femur. The drill holes were then made. I then proceeded with the tibial cut. I planned for cruciate-retaining knee. The guide was placed and set for varus/valgus and for slope. The height was set for approximately 2 mm resection from the medial tibial plateau, which was the lower side. I was happy with the alignment and the amount of resection. The cutting block was then pinned to the proximal tibia. The alignment camron was removed. The proximal tibia was resected with a reciprocating saw. Again, this was done with retractors, protecting the collateral ligaments as well as the posterior cruciate ligament. I then proceeded to evaluate the flexion-extension gaps. A 10 mm block was then placed. The flexion extension gaps were equal. I then proceeded with resection of the posterior osteophytes. She had very extensive posterior osteophytes. This was done using curved osteotome. This resected the posterior osteophytes and posterior capsular stripping was done off the posterior aspect of the femur at this time. The osteophytes were then removed. I then proceeded with the resection of the patella. The thickness of the patella was measured using the caliper. The thickness was 22 mm. The thickness of the anticipated patellar dome was taken into account. Resection was then performed and confirmed to be equal in 4 quadrants using a caliper. Approximately, 14 mm of bone remained after resection. A 29 x 8 standard patellar trial was then placed. The holes were drilled, and the trial was then placed. I then proceeded with sizing tibial plate. A size D tibial plate fit very nicely. I then placed the trial femur, the tibial tray, and the patellar button. A 10 mm trial tibial insert was also placed. The components fit very nicely. She had full extension and flexion. The extension and flexion gaps were equal and stable to varus and valgus stress. The patella tracked appropriately. The tibial tray rotation was then marked with a Bovie. This was externally rotated properly. I then proceeded with tibial preparation. I first drilled the femoral holes and removed the femoral component. The tibial tray was then set for proper external rotation as well as medial lateral placement of the tibia, then pinned into place. I then proceeded punching the keel. I then decided to proceed with cementing of all of our components. The knee was thoroughly irrigated with sterile saline solution via pulse lavage. The lateral geniculate artery was identified and cauterized. All blood was removed from the bone of the tibia, femur, and patella pulse lavage. I then proceeded with cementing. Two packs of antibiotic bone cement were prepared on the back table by surgical scheduler. I then proceeded with cementing the tibia first. Cement was impacted in the keel as well as deeply seated into the bone. A second coat cement was then placed. The tibia was then impacted into place. The excess cement was removed with Riga's and Jokers. I then proceeded with cementing of the femoral component. The femoral component was also cemented using standard technique. Excess cement was removed. A 10 mm trial insert was then placed into the knee. It was brought into full extension with a constant axial load placed until the cement had hardened. The patellar component was then cemented. This was held firmly with a compressive device until the cement had dried. When the cement had dried, the knee was taken out of extension. All excess cement was removed from around the prosthesis. I then trialed the knee with a 10 mm insert. The flexion-extension gaps were appropriate. The knee was stable. It came into full extension. I decided to go forward with a 10 mm Medial Congruent cross-linked cruciate- retaining tibial insert. Polyethylene was then placed onto the tibial tray and locked into place. The knee was then reduced. The knee was again further irrigated with sterile saline solution with antibiotic added. The tourniquet was then deflated. Total tourniquet time for the procedure was 59 minutes at 250 mmHg. Final components were Larry Persona size 8 cruciate-retaining femoral component, size D tibial tray, a 10 mm Medial Congruent cruciate-retaining polyethylene insert, and a 29 x 8 mm patella. I then proceeded with closure. Again, the knee was thoroughly irrigated. The quadriceps tendon and the medial retinaculum were reapproximated with a #2 Ethibond suture. The extensor mechanism was then closed with a running #2 Quill suture. Subcutaneous tissues were closed with 2-0 Vicryl interrupted suture. The skin was closed with a running 3-0 Quill suture. Dermabond was applied to the incision. A sterile compressive dressing was then applied. All sponge and needle counts were deemed correct prior to closure. The patient tolerated the procedure without apparent complication. She was transferred to the recovery room in stable condition. MMODL / IJN: [id number] /
--- NOTE | 2022-10-10 12:51 | XR ---
EXAMINATION TYPE: XR knee limited RT DATE OF EXAM: 10/10/2022 12:47 PM INDICATION: Patient age:Female; 77 years old; Reason for study: Evaluation for Postop abnormality and alignment; PHH. COMPARISON: None. TECHNIQUE: The Right knee(s) was examined in AP and crosstable lateral projections. FINDINGS: Postsurgical changes of total right knee arthroplasty with distal femoral and proximal ti bial components. Hardware appears intact with appropriate alignment. There is associated soft tissue gas and edema. No acute fracture or dislocation. IMPRESSION: Postsurgical changes from total right knee arthroplasty. Hardware appears intact with appropriate ali gnment.
[2022-10-10] MEDS: LACTATED RINGERS 1,000 ML IV SCH ×4 (13:28→22:53)
[2022-10-10 16:09] LABS: Glucose,Whole Blood 147 mg/dL (70-110)
[2022-10-10] MEDS: HYDROcodone/APAP 10-325MG 1 EACH TAB PO PRN ×2 (17:06→22:49)
[2022-10-10] MEDS: ASPIRIN 81 MG PO SCH (19:58)
[2022-10-10 20:49] LABS: Glucose,Whole Blood 238 mg/dL (70-110)
[2022-10-10] MEDS ORDERED: SENNOSIDES-DOCUSATE SODIUM 1 EACH TAB PO SCH (21:00)
--- NOTE | 2022-10-10 21:35 | P.CONS ---
History of Present Illness - Reason for Consult Consult date: 10/10/22 Medical management Requesting physician: Carlos Alberto Kaminski - Chief Complaint Right knee surgery - History of Present Illness This is a pleasant 77-year-old patient of Dr. Farley. Chronic stable medical conditions include diabetes mellitus type 2, hypertension, osteoarthritis of joints. Patient is undergone right total knee arthroplasty. Postprocedure no nausea vomiting. No chest pain or shortness of breath. Reclining in bed. Comfortable Review of systems: GEN.: None EYES: None HEENT: None NECK: None RESPIRATORY: None CARDIOVASCULAR: None GASTROINTESTINAL: None GENITOURINARY: Urine stress incontinence MUSCULOSKELETAL: Pain in different joints LYMPHATICS: None HEMATOLOGICAL: None PSYCHIATRY: None NEUROLOGICAL: None Past medical history to include: Diabetes mellitus, hypertension, osteoarthritis, Social history: No history of smoking or alcohol. Lives alone Physical examination: VITAL SIGNS: 97.4, 58, 17, 144/82, 97% room air GENERAL: BMI 30.3, reclining in bed awake comfortable. EYES: Pupils equal. Conjunctiva normal. HEENT: External appearance of nose and ears normal, oral cavity grossly normal. NECK: JVD not raised; masses not palpable. HEART: First and second heart sounds are normal; no edema. LUNGS: Respiratory rate normal; clear to auscultation. ABDOMEN: Soft, nontender, liver spleen not palpable, no masses palpable. PSYCH: Alert and oriented x3; mood and affect normal. MUSCULOSKELETAL:No Clubbing/cyanosis;muscles-grossly intact. Evidence of OA. Dressing of the right knee. NEUROLOGICAL: Cranial nerves grossly intact; no facial asymmetry, power and sensation grossly intact. LYMPHATICS: No lymph nodes palpable in the axilla and neck INVESTIGATIONS, reviewed in the clinical context: 09/13/2022: White count 10 hemoglobin 13.1 platelets 348 sodium 143 potassium 4.5 creatinine 0.7 Assessment and plan: -Right total knee arthroplasty. Aspirin 81 mg twice a day for DVT prophylaxis. IV Ancef for infection prophylaxis. Pain management -Diabetes mellitus type 2 on oral hypoglycemic janumet 50/500. Follow Accu-Cheks. Essential hypertension Cozaar 100 mg a day. Hydrochlorothiazide-hold -Chronic urinary stress incontinence -Primary osteoarthritis multiple joints bilateral Tylenol when necessary -Occasional GERD Pepcid when necessary . discussed with patient. Thank you Dr. Kaminsik Past Medical History Past Medical History: Diabetes Mellitus, GERD/Reflux, Hypertension, Osteoarthritis (OA) Additional Past Medical History / Comment(s): sore on left knee, scabbed happened a couple of weeks ago pt reports currently has poision meagan on hands,face and waist History of Any Multi-Drug Resistant Organisms: None Reported Past Surgical History: Hernia Repair, Joint Replacement Additional Past Surgical History / Comment(s): d & c Past Anesthesia/Blood Transfusion Reactions: No Reported Reaction Past Psychological History: No Psychological Hx Reported Smoking Status: Former smoker Past Alcohol Use History: None Reported Additional Past Alcohol Use History / Comment(s): as a teenager Past Drug Use History: None Reported Medications and Allergies Home Medications Medication Instructions Recorded Confirmed Type Acetaminophen [Tylenol Extra 1,000 mg PO DIRECTED PRN 09/17/21 10/10/22 History Strength] Losartan Potassium [Cozaar] 100 mg PO DAILY 09/17/21 10/10/22 History hydroCHLOROthiazide [Hydrodiuril] 25 mg PO DAILY 09/17/21 10/10/22 History sitaGLIPtin PHOS/metFORMIN HCL 1 each PO DAILY 09/17/21 10/10/22 History [Janumet 50-500 mg Tablet] Cephalexin [Keflex] 500 mg PO Q6HR 1 Days #20 cap 10/10/22 Rx Allergies Allergy/AdvReac Type Severity Reaction Status Date / Time codeine Allergy Rash/Hives Verified 10/10/22 07:48 prazosin [From Minipress] AdvReac Nausea Verified 10/10/22 07:48 Physical Exam Vitals: Vital Signs Temp Pulse Resp BP Pulse Ox 10/10/22 19:52 97.4 F L 58 L 17 144/82 97 10/10/22 14:00 97.6 F 48 L 17 144/82 99 10/10/22 13:27 44 L 16 146/63 98 10/10/22 13:00 45 L 16 143/65 98 10/10/22 12:45 49 L 16 147/68 98 10/10/22 12:30 59 L 16 146/68 100 10/10/22 12:15 44 L 16 140/64 100 10/10/22 12:00 42 L 14 146/64 100 10/10/22 11:45 96.8 F L 41 L 10 L 145/62 100 10/10/22 09:08 48 L 16 134/61 99 10/10/22 08:32 97.4 F L 55 L 16 150/65 96 Intake and Output 10/10/22 10/10/22 10/10/22 06:59 14:59 22:59 Intake Total 1050 550 Output Total 100 Balance 950 550 Intake: IV 1050 Intake, IV Titration 550 Amount Lactated Ringers 1,000 ml 500 @ 100 mls/hr IV .Q10H DAVID Rx#:[id number] ceFAZolin 2 gm In Sodium 50 Chloride 0.9% 50 ml @ 100 mls/hr IVPB Q8H DAVID Rx#: [id number] Output: Estimated Blood Loss 100 Other: # Voids 1 Weight 80.2 kg Results Labs: Abnormal Lab Results - Last 24 Hours (Table) 10/10/22 10/10/22 10/10/22 Range/Units 08:17 16:06 20:47 POC Glucose (mg/dL) 143 H 147 H 238 H (70-110) mg/dL
[2022-10-11 01:49] VITALS: PULSE 62
[2022-10-11 06:04] LABS: Glucose,Whole Blood 117 mg/dL (70-110)
[2022-10-11] MEDS: HYDROcodone/APAP 10-325MG 1 EACH TAB PO PRN ×2 (06:46→12:11)
--- NOTE | 2022-10-11 07:00 | P.PN ---
Progress Note - Text Progress Note Date: 10/11/22 patient was seen and evaluated at bedside. Status post postoperative day 1 for right-sided total knee arthroplasty patient had adductor canal catheter for postop pain control. Patient rated pain at rest 4 out of 10 in severity. Patient describes pain is aching, throbbing type on the sides of the knee and back of the knee. Patient started walking with support. With activity patient pain levels are 5-6 out of 10 in severity. With the help of oral pain medications pain levels are tolerable. Patient denied any weakness/ numbness in lower extremities. patient denied any fever, pain over the catheter site. Physical exam: Patient vital signs stable Patient is alert awake oriented 3 responding to all questions appropriately Examination of the catheter site showed dressing intact, no leaking fluid around the catheter, no redness, no tenderness over the catheter insertion area. plan: status post postoperative day 1 for right side total knee arthroplasty with adductor canal catheter for pain control. Patient was discussed to continue the medication at the rate of 8 mL per hour until the pump is completely empty and instructed the patient how to discontinue the catheter.
[2022-10-11 07:21] VITALS: BP 120/72; RESP 20; TEMP 99
[2022-10-11] MEDS: ASPIRIN 81 MG PO SCH (08:08)
[2022-10-11 08:41] LABS: HCT 36.8 % (37.2-46.3); HGB 11.5 d/dL (12.0-15.0); MCH 27.8 pg (27.0-32.0); MCHC 31.3 d/dL (32.0-37.0); MCV 88.9 FL (80.0-97.0); Mean Platelet Volume 10.7 FL (9.5-12.2); NRBC Per 100 WBC 0 X 10*3/uL (0.00-0.01); Platelet Count 322 X 10*3/uL (140-440); RBC 4.14 X 10*6/uL (4.10-5.20); RDW 14.2 % (11.5-14.5); WBC 10.91 X 10*3/uL (4.50-10.00)
[2022-10-11] MEDS ORDERED: metFORMIN 500 MG TAB PO SCH (09:00)
[2022-10-11] MEDS ORDERED: LINAGLIPTIN 5 MG TABLET PO SCH (09:00)
[2022-10-11] MEDS ORDERED: LOSARTAN 50 MG TAB PO SCH (09:00)
[2022-10-11 10:11] LABS: Basophils # (A) 0.05 X 10*3/uL (0.00-0.10); Basophils % (A) 0.5 %; Eosinophils # (A) 0.03 X 10*3/uL (0.04-0.35); Eosinophils % (A) 0.3 %; Lymphocytes # (A) 1.64 X 10*3/uL (0.90-5.00); Monocytes # (A) 1.53 X 10*3/uL (0.20-1.00); Neutrophils # (A) 7.63 X 10*3/uL (1.80-7.70); Neutrophils % (A) 69.9 %
[2022-10-11 10:12] LABS: RBC Morphology Normal (Normal)
[2022-10-11] MEDS: LACTATED RINGERS 1,000 ML IV SCH (11:42)
[2022-10-11 11:52] LABS: Glucose,Whole Blood 156 mg/dL (70-110)
[2022-10-11] MEDS ORDERED: MULTIVITAMINS, THERA 1 EACH TAB PO SCH (12:00)
--- NOTE | 2022-10-11 14:11 | P.DS ---
Providers Expected date of discharge: 10/11/22 Attending physician: Carlos Alberto Kaminski Consults: 10/10/22 09:26 Consult Physician Routine Consulting Provider: Jered Mcdonald Consult Reason/Comments: post op medical management Do you want consulting provider notified?: Yes Primary care physician: Antwan Farley - Discharge Diagnosis(es) (1) Total knee replacement status Patient was admitted to the OR on 10/10/22 to undergo a right total knee arthroplasty. She had failed conservative measures as an outpatient and desired to proceed with elective surgery after given informed consent. She underwent the above procedure which she tolerated well without complication. Postoperative hospital course has remained without complication. On day of discharge she is afebrile, vital signs stable, labs within acceptable ranges, tolerating by mouth meds and diet, voiding without difficulty, positive flatus, denies abdominal pain or calf pain, pain is controlled on oral pain medication and has no new complaints. Wound is benign, neurovascular status is intact, calf is soft and nontender, abdomen soft and nontender. Review of systems is negative for numbness, tingling, fever, chills, chest pain, shortness of breath, nausea, vomiting, dizziness, headaches, slurred speech or other. Current Visit: No Status: Acute Priority: Medium Procedures: Right TKA Patient Condition at Discharge: Good Plan - Discharge Summary Discharge Rx Participant: No New Discharge Prescriptions: New Cephalexin [Keflex] 500 mg PO Q6HR 1 Days #20 cap Aspirin [Adult Low Dose Aspirin EC] 81 mg PO BID #60 tab Docusate [Colace] 100 mg PO BID #60 capsule HYDROcodone/APAP 7.5-325MG [Mazama 7.5-325] 1 - 2 each PO Q6HR PRN #42 tab PRN Reason: Pain Ondansetron [Zofran] 4 mg PO Q8HR PRN #21 tab PRN Reason: Nausea Continue hydroCHLOROthiazide [Hydrodiuril] 25 mg PO DAILY Acetaminophen [Tylenol Extra Strength] 1,000 mg PO DIRECTED PRN PRN Reason: Pain sitaGLIPtin PHOS/metFORMIN HCL [Janumet 50-500 mg Tablet] 1 each PO DAILY Losartan Potassium [Cozaar] 100 mg PO DAILY Discharge Medication List Acetaminophen [Tylenol Extra Strength] 1,000 mg PO DIRECTED PRN 09/17/21 [History] Losartan Potassium [Cozaar] 100 mg PO DAILY 09/17/21 [History] hydroCHLOROthiazide [Hydrodiuril] 25 mg PO DAILY 09/17/21 [History] sitaGLIPtin PHOS/metFORMIN HCL [Janumet 50-500 mg Tablet] 1 each PO DAILY 09/17/21 [History] Cephalexin [Keflex] 500 mg PO Q6HR 1 Days #20 cap 10/10/22 [Rx] Aspirin [Adult Low Dose Aspirin EC] 81 mg PO BID #60 tab 10/11/22 [Rx] Docusate [Colace] 100 mg PO BID #60 capsule 10/11/22 [Rx] HYDROcodone/APAP 7.5-325MG [Mazama 7.5-325] 1 - 2 each PO Q6HR PRN #42 tab 10/11/22 [Rx] Ondansetron [Zofran] 4 mg PO Q8HR PRN #21 tab 10/11/22 [Rx] Follow up Appointment(s)/Referral(s): Antwan Farley MD [Primary Care Provider] - 1 Week (Office is closed at time of discharge. Please call for appointment.) [facility], [NON-STAFF] - As Needed Carlos Alberto Kaminski MD [STAFF PHYSICIAN] - 10/17/22 9:45 am Patient Instructions/Handouts: *Sur[facility] - (O&A) Arthroscopic Knee Post-Op Instructions, *Surgery [facility] - On-Q Pain Pump Discharge Instructions Activity/Diet/Wound Care/Special Instructions: keep wound clean and dry take meds as directed f/u in office may shower in 3 days Discharge Disposition: HOME WITH HOME HEALTH SERVICES
--- NOTE | 2022-10-11 16:54 | P.PN ---
Progress Note - Text Progress Note Date: 10/11/22 - Chief Complaint Right knee surgery Hospital course: This is a pleasant 77-year-old patient of Dr. Farley. Chronic stable medical conditions include diabetes mellitus type 2, hypertension, osteoarthritis of joints. Patient is undergone right total knee arthroplasty. Postprocedure no nausea vomiting. No chest pain or shortness of breath. Reclining in bed. Comfortable October 11: Sitting up. Pain control. Did tolerate a diet. No chest pain or short of breath. Did ambulate. No new issues. Current medications reviewed Past medical history to include: Diabetes mellitus, hypertension, osteoarthritis, Social history: No history of smoking or alcohol. Lives alone Physical examination: VITAL SIGNS: 99, 62, 20, 120/72, 98% room air GENERAL: BMI 30.3, reclining comfortable EYES: Pupils equal. Conjunctiva normal. HEENT: External appearance of nose and ears normal, oral cavity grossly normal. NECK: JVD not raised; masses not palpable. HEART: First and second heart sounds are normal; no edema. LUNGS: Respiratory rate normal; clear to auscultation. ABDOMEN: Soft, nontender, liver spleen not palpable, no masses palpable. PSYCH: Alert and oriented x3; mood and affect normal. MUSCULOSKELETAL:No Clubbing/cyanosis;muscles-grossly intact. Evidence of OA. Dressing of the right knee. INVESTIGATIONS, reviewed in the clinical context: October 11: White count 10.9 hemoglobin 11.5 platelets 322 09/13/2022: White count 10 hemoglobin 13.1 platelets 348 sodium 143 potassium 4.5 creatinine 0.7 Assessment and plan: -Right total knee arthroplasty. Aspirin 81 mg twice a day for DVT prophylaxis. IV Ancef for infection proph ylaxis. Pain management -Acute postprocedure blood loss anemia expected from surgery Iron supplements [id number] -Diabetes mellitus type 2 on oral hypoglycemic janumet 50/500. Follow Accu-Cheks. Essential hypertension Cozaar 100 mg a day. Hydrochlorothiazide-hold -Chronic urinary stress incontinence -Primary osteoarthritis multiple joints bilateral Tylenol when necessary -Occasional GERD Pepcid when necessary Questions answered. discussed with patient. Follow-up with PCP upon discharge Thank you Dr. Kaminski
== END 2022-10-11 14:53 | disposition home health service (06) ==
LOC: OR 07:00 → 4SSUR 11:45 → OR 10-11 14:53
PROVIDERS: ATTEND Orthopaedic Surgery Sports Medicine
DX: M17.11 Unilateral primary osteoarthritis, right knee (principal); I10 Essential (primary) hypertension; M25.761 Osteophyte, right knee; M21.061 Valgus deformity, not elsewhere classified, right knee; E11.9 Type 2 diabetes mellitus without complications; Z82.49 Family history of ischemic heart disease and other diseases of the circulatory system; Z79.899 Other long term (current) drug therapy; Z88.5 Allergy status to narcotic agent
CPT/HCPCS: 97162; 64999; 64448; 85025; 73560; 27447; C1776; C1713; C1751; J2250; J1100; J0690 ×2; J2405; J3010; J2795; J2704